=== PATIENT | male | born 1985 | race Caucasian/White ===

== ENCOUNTER 2021-08-23 06:31 | Emergency (ER) | payer BC, OTHER ==
[~2021-08-23] VITALS: Ht 170.2 cm; Wt 113.0 kg
[~2021-08-23 06:31] MED LIST: IBUPROFEN; OMEPRAZOLE
[2021-08-23] MEDS ORDERED: METOCLOPRAMIDE HCL 10MG/2ML VIAL IV STA (08:17)
[2021-08-23] MEDS ORDERED: MAGNESIUM/ALUMINUM HYDROXIDE/SIMETHICONE 30ML UDC PO STA (08:17)
[2021-08-23] MEDS ORDERED: FAMOTIDINE 20MG/2ML VIAL IV STA (08:17)
[2021-08-23 08:25] LABS: BASOPHILS % 0.6 % (0.0-2.0); EOSINOPHILS % 1.2 % (0.0-5.0); HEMATOCRIT. 42.4 % (42.0-52.0); HEMOGLOBIN. 14.3 g/dL (14.0-18.0); LYMPHOCYTES % 32.4 % (20.0-50.0); MEAN CORPUSCULAR HEMOGLOBIN 27.7 pg (28.0-32.0); MEAN PLATELET VOLUME 8.7 fl (7.4-10.4); MONOCYTES % 7.1 % (2.0-8.0); NEUTROPHILS % 58.7 % (40.0-76.0); PLATELET 348 x1000/uL (130-400); RED BLOOD CELL COUNT 5.17 mill/uL (4.7-6.1); RED CELL DISTRIBUTION WIDTH 15.1 % (11.6-14.6)
[2021-08-23 08:28] LABS: CHLORIDE 105 mEq/L (98-107)
[2021-08-23] MEDS ORDERED: SODIUM CHLORIDE 0.9% 1,000 ML IV ONE (08:30)
[2021-08-23 10:37] VITALS: BP 135/70
== END 2021-08-23 10:39 | disposition home or self-care (01) ==
LOC: ER 06:31
DX: K21.9 Gastro-esophageal reflux disease without esophagitis (principal); R00.0 Tachycardia, unspecified; E11.9 Type 2 diabetes mellitus without complications; J45.909 Unspecified asthma, uncomplicated
CPT/HCPCS: 36415; 80053; 83690; 84484; 85025; 93005; 96374; 96375; 99285; J2765; J3490; J7030